=== PATIENT | female | born 1945 | race Caucasian/White ===

== ENCOUNTER 2021-12-31 15:39 | Inpatient (IN) | payer MEDICARE ==
[2021-12-31] MEDS ORDERED: Ondansetron ODT 4 MG TAB PO PRN (16:58)
[2021-12-31] MEDS ORDERED: Senokot S 8.6-50 MG TAB PO PRN (16:58)
[2021-12-31] MEDS ORDERED: HYDROcodone/Acetaminophen 5/325 mg Tablet PO PRN (16:58)
[2021-12-31] MEDS ORDERED: Acetaminophen 325 MG TAB PO PRN (16:58)
[2021-12-31] MEDS ORDERED: Enoxaparin Sodium 40 MG/0.4 ML SYRINGE SC SCH (17:30)
[2021-12-31 18:25] VITALS: BMI 32.5
[2021-12-31 20:43] LABS: #Eosinphils 0.1 10x3/uL (0.0-0.5); #Monocytes 0.4 10x3/uL (0.0-1.1); #Neutrophils 1.7 10x3/uL (1.5-8.4); %Basophils 0.4 % (0.0-2.0); %Eosinophils 2.2 % (0.0-6.0); %Lymphocytes 21.9 % (18.0-47.0); %Monocytes 13.7 % (0.0-10.0); %Neutrophils 61.4 % (40.0-75.0); Hemoglobin 9.1 g/dL (12.0-15.5); Mean Corpuscular HGB CONC 32.2 g/dL (32.0-36.0); Mean Corpuscular Hemoglobin 29.9 pg (27.0-33.0); Mean Corpuscular Volume 93.1 fl (81.6-98.3); Mean Platelet Volume 9.7 fl (7.4-10.4); Platelet Count 89 10x3/uL (150-450); RBC Distribution Width 15.1 % (11.5-14.5); Red Blood Cell (RBC) Count 3.04 10x6/uL (3.90-5.03); White Blood Cell (WBC) Count 2.7 10x3/uL (3.5-10.5)
[2021-12-31 20:54] LABS: ALT (SGPT) 22 U/L (8-55); AST (SGOT) 36 U/L (5-34); Albumin 2.5 g/dL (3.4-4.8); Alkaline Phosphatase 70 U/L (40-110); Anion Gap 12 mmol/L (10-20); BUN (Urea Nitrogen) 6 mg/dL (9.8-20.1); Calc. Creatinine Clearance 101 mL/min (70-130); Calcium 8.3 mg/dL (7.8-10.44); Carbon Dioxide 28 mmol/L (23-31); Chloride 101 mmol/L (98-107); Estimated GFR 89; Globulin 3.7 g/dL (2.4-3.5); Glucose 124 mg/dL (83-110); Protein, Total 6.2 g/dL (5.8-8.1); Sodium 137 mmol/L (136-145)
[2021-12-31 21:04] LABS: Troponin I Less than 0.010 ng/mL (< 0.028)
[2021-12-31] MEDS: Metoprolol Tartrate 50 MG TAB PO SCH (22:08)
[2021-12-31] MEDS: Famotidine 20 MG TAB PO SCH (22:08)
[2021-12-31] MEDS ORDERED: oxyCODONE 5 MG TAB PO PRN (22:50)
[2022-01-01 00:06] LABS: Troponin I Less than 0.010 ng/mL (< 0.028)
[2022-01-01 03:06] LABS: ALT (SGPT) 16 U/L (8-55); AST (SGOT) 28 U/L (5-34); Albumin 2.2 g/dL (3.4-4.8); Alkaline Phosphatase 70 U/L (40-110); Anion Gap 8 mmol/L (10-20); BUN (Urea Nitrogen) 6 mg/dL (9.8-20.1); Bilirubin, Total 0.8 mg/dL (0.2-1.2); Calc. Creatinine Clearance 104 mL/min (70-130); Calcium 7.9 mg/dL (7.8-10.44); Carbon Dioxide 30 mmol/L (23-31); Chloride 103 mmol/L (98-107); Estimated GFR 91; Globulin 3.4 g/dL (2.4-3.5); Glucose 112 mg/dL (83-110); Potassium 3.2 mmol/L (3.5-5.1); Protein, Total 5.6 g/dL (5.8-8.1); Sodium 138 mmol/L (136-145)
[2022-01-01 03:07] LABS: Troponin I Less than 0.010 ng/mL (< 0.028)
[2022-01-01 03:48] LABS: #Eosinphils 0.1 10x3/uL (0.0-0.5); #Monocytes 0.3 10x3/uL (0.0-1.1); #Neutrophils 1.2 10x3/uL (1.5-8.4); %Basophils 0.9 % (0.0-2.0); %Lymphocytes 28.1 % (18.0-47.0); %Monocytes 13.8 % (0.0-10.0); %Neutrophils 52.8 % (40.0-75.0); Hemoglobin 8.3 g/dL (12.0-15.5); Mean Corpuscular HGB CONC 33.6 g/dL (32.0-36.0); Mean Corpuscular Hemoglobin 30.3 pg (27.0-33.0); Mean Corpuscular Volume 90.1 fl (81.6-98.3); Mean Platelet Volume 10.2 fl (7.4-10.4); Platelet Count 79 10x3/uL (150-450); RBC Distribution Width 15.3 % (11.5-14.5); Red Blood Cell (RBC) Count 2.74 10x6/uL (3.90-5.03); White Blood Cell (WBC) Count 2.2 10x3/uL (3.5-10.5)
[2022-01-01] MEDS: Famotidine 20 MG TAB PO SCH (08:39)
[2022-01-01] MEDS: Metoprolol Tartrate 50 MG TAB PO SCH (08:39)
[2022-01-01] MEDS ORDERED: Furosemide 40 MG TAB PO SCH (09:00)
[2022-01-01] MEDS ORDERED: Spironolactone 25 MG TAB PO SCH (09:00)
[2022-01-01] MEDS ORDERED: Aspirin Chewable 81 MG TAB PO SCH (09:00)
[2022-01-01 11:49] VITALS: TEMP 96.6
[2022-01-01] MEDS ORDERED: Potassium Chloride 20 MEQ TAB PO SCH (14:30)
[2022-01-01 14:43] VITALS: BP 106/53
[2022-01-01] MEDS ORDERED: Metoprolol Tartrate 50 MG TAB PO SCH (21:00)
== END 2022-01-01 15:01 | disposition home or self-care (01) | DRG 310 ==
LOC: CSHTELE 15:39
PROVIDERS: ADMIT Family Medicine; ATTEND Internal Medicine
DX: I47.1 Supraventricular tachycardia (principal); R07.9 Chest pain, unspecified; R00.2 Palpitations; N20.0 Calculus of kidney; M79.7 Fibromyalgia; G89.29 Other chronic pain; I35.0 Nonrheumatic aortic (valve) stenosis; D50.9 Iron deficiency anemia, unspecified; E89.0 Postprocedural hypothyroidism; I10 Essential (primary) hypertension; I25.118 Atherosclerotic heart disease of native coronary artery with other forms of angina pectoris; E66.9 Obesity, unspecified; Z88.1 Allergy status to other antibiotic agents; Z88.8 Allergy status to other drugs, medicaments and biological substances; Z79.890 Hormone replacement therapy; Z79.82 Long term (current) use of aspirin; Z79.899 Other long term (current) drug therapy; Z98.41 Cataract extraction status, right eye; Z98.42 Cataract extraction status, left eye; Z95.5 Presence of coronary angioplasty implant and graft; Z98.51 Tubal ligation status; Z98.84 Bariatric surgery status; Z82.49 Family history of ischemic heart disease and other diseases of the circulatory system; Z80.3 Family history of malignant neoplasm of breast; Z87.891 Personal history of nicotine dependence
CPT/HCPCS: 36415; 71046; 80053; 84484; 85025; 93005; 93010; J1650

== ENCOUNTER 2023-04-27 10:10 | Outpatient (CLI) | payer MEDICARE | END 2023-04-27 10:11 | disposition home or self-care (01) | LOC: CSHULT 10:10 | PROVIDERS: ATTEND Physician Assistant Medical | DX: K74.60 Unspecified cirrhosis of liver (principal); R16.1 Splenomegaly, not elsewhere classified; J94.8 Other specified pleural conditions | CPT/HCPCS: 76705 ==